=== PATIENT | male | born 1945 | race Caucasian/White ===

== ENCOUNTER 2017-05-25 15:57 | Observation (INO) | payer MEDICARE, BC, OTHER ==
[2017-05-25 16:25] LABS: #Eosinphils 0.1 thou/uL (0.0-0.7); #Lymphocytes 2.7 thou/uL (1.20-3.40); #Monocytes 0.8 thou/uL (0.11-0.59); #Neutrophils 14.6 thou/uL (1.40-6.50); %Basophils 0.2 % (0.0-1.0); %Eosinophils 0.5 % (0.0-10.0); %Lymphocytes 14.6 % (21.0-51.0); %Monocytes 4.4 % (0.0-10.0); Hematocrit 43.9 % (42.0-52.0); White Blood Cell (WBC) Count 18.2 thou/uL (4.8-10.8)
[2017-05-25 16:31] LABS: PTT 23.3 SEC (22.9-36.1)
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
[2017-05-25] MEDS ORDERED: Ketorolac Tromethamine 30 MG/ML VIAL ONE (16:51)
[2017-05-25 16:52] LABS: ALT (SGPT) 41 U/L (8-55); AST (SGOT) 100 U/L (5-34); Alkaline Phosphatase 67 U/L (40-150); Anion Gap 15 mmol/L (10-20); BUN (Urea Nitrogen) 25 mg/dL (8.4-25.7); Bilirubin, Total 0.5 mg/dL (0.2-1.2); Calc. Creatinine Clearance 0 mL/min (70-130); Calcium 9.6 mg/dL (7.8-10.44); Carbon Dioxide 23 mmol/L (23-31); Chloride 107 mmol/L (98-107); Estimated GFR-MDRD 50; Globulin 2.8 g/dL (2.4-3.5)
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
[2017-05-25] MEDS ORDERED: Adacel (T-DAP) 0.5 ML VIAL ONE (17:06)
[2017-05-25] MEDS ORDERED: Ondansetron HCl/PF 4 MG/2 ML Vial IVP PRN (18:03)
[2017-05-25] MEDS ORDERED: Dextrose 5% in Water 1,000 ML IV PRN (18:03)
[2017-05-25] MEDS ORDERED: Dextrose 50% Abboject 50 ML SYRINGE SLOW IVP PRN (18:03)
[2017-05-25] MEDS ORDERED: Cyclobenzaprine 10 MG TAB PO PRN (18:03)
[2017-05-25] MEDS ORDERED: Ondansetron ODT 4 MG TAB PO PRN (18:03)
[2017-05-25] MEDS ORDERED: traMADol HCl 50 MG TAB PO PRN ×2 (18:03)
[2017-05-25] MEDS ORDERED: Promethazine HCl 25 MG/ML VIAL IM PRN (18:03)
[2017-05-25] MEDS ORDERED: Sodium Chloride 0.9% 1,000 ML IV SCH (18:15)
[2017-05-25 18:24] LABS: Bilirubin Negative (Negative); Blood, Urine Small (Negative); Glucose, Urine (Dipstick) 500 mg/dL (Negative); Ketone, Urine Negative (Negative); Nitrite Negative (Negative); Protein, Urine (Dipstick) 100 mg/dL (Neg-Trace); Urobilinogen 0.2 mg/dL (0.2-1.0)
[2017-05-25 18:27] LABS: Bacteria/HPF None Seen HPF (None Seen); Hyaline Casts/LPF 4-6 HYALINE CAST LPF (0-3 Hyaline); Squamous Epithelial 0-3 HPF (0-3)
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
[2017-05-25] MEDS: Gabapentin 100 MG CAP PO SCH (22:30)
[2017-05-25] MEDS: Famotidine 20 MG TAB PO SCH (22:31)
[2017-05-25] MEDS: HumaLOG 300 UNITS/3 ML VIAL SC PRN (22:47)
[2017-05-25 23:05] VITALS: BMI 26.0
[2017-05-26] MEDS: Acetaminophen 500 MG TAB PO SCH ×4 (00:38→12:37)
[2017-05-26] MEDS: HumaLOG 300 UNITS/3 ML VIAL SC PRN ×2 (05:38→11:35)
[2017-05-26 05:57] LABS: #Lymphocytes 0.9 thou/uL (1.20-3.40); #Monocytes 1.2 thou/uL (0.11-0.59); #Neutrophils 17.1 thou/uL (1.40-6.50); %Basophils 0.2 % (0.0-1.0); %Eosinophils 0.1 % (0.0-10.0); %Lymphocytes 4.9 % (21.0-51.0); %Monocytes 6.3 % (0.0-10.0); Red Blood Cell (RBC) Count 4.51 mill/uL (4.70-6.10); White Blood Cell (WBC) Count 19.3 thou/uL (4.8-10.8)
[2017-05-26 06:19] LABS: Anion Gap 14 mmol/L (10-20); BUN (Urea Nitrogen) 23 mg/dL (8.4-25.7); Calc. Creatinine Clearance 54 mL/min (70-130); Calcium 8.8 mg/dL (7.8-10.44); Carbon Dioxide 23 mmol/L (23-31); Chloride 108 mmol/L (98-107); Estimated GFR-MDRD 53
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
[2017-05-26 08:07] VITALS: TEMP 98.8
[2017-05-26] MEDS: Gabapentin 100 MG CAP PO SCH (08:12)
[2017-05-26] MEDS: Famotidine 20 MG TAB PO SCH (08:12)
[2017-05-26] MEDS ORDERED: Lisinopril 2.5 MG TAB PO SCH (10:00)
[2017-05-26] MEDS ORDERED: Glimepiride 2 MG TAB PO SCH (12:30)
[2017-05-26 14:34] VITALS: BP 136/70
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
[2017-05-27] MEDS ORDERED: Glimepiride 2 MG TAB PO SCH (07:30)
[2017-05-27] MEDS ORDERED: Tamsulosin HCl 0.4 MG CAP PO SCH (09:00)
[2017-05-27] MEDS ORDERED: Lisinopril 2.5 MG TAB PO SCH (09:00)
== END 2017-05-26 13:57 | disposition home or self-care (01) ==
LOC: ERS 15:57 → SURG A 21:34
PROVIDERS: ADMIT Surgery; ATTEND Surgery
DX: S22.49XA Multiple fractures of ribs, unspecified side, initial encounter for closed fracture (principal); S42.009A Fracture of unspecified part of unspecified clavicle, initial encounter for closed fracture; I10 Essential (primary) hypertension; E11.9 Type 2 diabetes mellitus without complications; N40.0 Benign prostatic hyperplasia without lower urinary tract symptoms; E78.00 Pure hypercholesterolemia, unspecified; E66.01 Morbid (severe) obesity due to excess calories; Z68.26 Body mass index [BMI] 26.0-26.9, adult; Z79.84 Long term (current) use of oral hypoglycemic drugs; Z79.899 Other long term (current) drug therapy; Z87.891 Personal history of nicotine dependence
CPT/HCPCS: 70450; 71010 ×2; 72125; 73030; 80048; 80053; 80307; 82962 ×2; 85025 ×2; 85610; 85730; 90471; 90715; 94640 ×2; 96361 ×3; 96374; 96375; 97139; 99285; G0378; 36415; 36416; 81003; 81015; G0390; J1885; J2270; J7620